=== PATIENT | female | born 1965 | race Hispanic/Latino ===

== ENCOUNTER 2024-05-09 19:32 | Observation (INO) | payer OTHER, MEDICARE ==
[~2024-05-09] VITALS: Ht 160 cm; Wt 129.7 kg
[~2024-05-09 19:32] MED LIST: APIX5TAB PO; ARIP15TA66 PO; ASPI-1026 PO; ATOR40TA71 PO; DOCU100C33 PO; FLUT1BLS PO; FURO40TA5 PO; LEVO25TA54 PO; LOSA25TA41 PO; METO50 PO; MONT-39 PO; POTA-364 PO; TIZA-194 PO
[2024-05-09 20:07] LABS: BASOPHILS # (AUTO) 0.03 K/uL (0.00-0.20); BASOPHILS % (AUTO) 0.4 % (0.0-5.0); EOSINOPHILS # (AUTO) 0.54 K/uL (0.00-0.70); EOSINOPHILS % (AUTO) 7.7 % (0.0-8.0); HEMATOCRIT 41.4 % (36-48); IMMATURE GRANULOCYTE ABSOLUTE 0.02 K/uL (0-1); LYMPHOCYTES # (AUTO) 2.5 K/uL (1.0-4.8); LYMPHOCYTES % (AUTO) 36.3 % (21.0-51.0); MEAN CORPUSCULAR HEMOGLOBIN 29.8 pg (27.0-33.0); MEAN CORPUSCULAR HGB CONC 33.1 g/dL (32.0-36.0); MONOCYTES # (AUTO) 0.6 K/uL (0.1-1.0); NEUTROPHILS # (AUTO) 3.2 K/uL (1.8-7.7); NEUTROPHILS % (AUTO) 46.3 % (40.0-77.0); PLATELET COUNT (AUTO) 202 K/uL (130-400); RED CELL DISTRIBUTION WIDTH 13.2 % (11.0-15.5)
[2024-05-09 20:18] LABS: CREATININE 1.6 mg/dL (0.5-1.0); POTASSIUM 3.8 mmol/L (3.5-5.1)
[2024-05-09 20:21] LABS: INR 1.04 (0.85-1.15); PROTHROMBIN TIME 11.2 SEC (9.6-11.6)
[2024-05-09 20:22] LABS: PARTIAL THROMBOPLASTIN TIME 30.2 SEC (26.3-35.5)
[2024-05-09 20:23] LABS: MAGNESIUM 1.9 mg/dL (1.80-2.40)
[2024-05-09 20:42] LABS: B-TYPE NATRIURETIC PEPTIDE 65 pg/mL (0-100)
[2024-05-09] MEDS ORDERED: hydroMORPHone 0.5 MG SYG (0.5MG/0.5ML) IM ONE (21:00)
[2024-05-09] MEDS ORDERED: acetaMINOPHEN 325 MG TAB PO PRN ×2 (22:00)
[2024-05-10 00:21] VITALS: O2SAT 93
[2024-05-10 01:20] VITALS: BP 113/48; PULSE 64; RESP 20; TEMP 97.8
[2024-05-10 04:00] VITALS: BP 120/71; PULSE 69; RESP 20; TEMP 97.9
[2024-05-10 04:48] LABS: BASOPHILS # (AUTO) 0.05 K/uL (0.00-0.20); BASOPHILS % (AUTO) 0.7 % (0.0-5.0); EOSINOPHILS # (AUTO) 0.48 K/uL (0.00-0.70); EOSINOPHILS % (AUTO) 6.4 % (0.0-8.0); HEMATOCRIT 42.1 % (36-48); IMMATURE GRANULOCYTE ABSOLUTE 0.03 K/uL (0-1); LYMPHOCYTES # (AUTO) 1.8 K/uL (1.0-4.8); LYMPHOCYTES % (AUTO) 24.5 % (21.0-51.0); MEAN CORPUSCULAR HEMOGLOBIN 29.6 pg (27.0-33.0); MEAN CORPUSCULAR VOLUME 89.6 fL (79-99); MONOCYTES # (AUTO) 0.6 K/uL (0.1-1.0); MONOCYTES % (AUTO) 8.1 % (3.0-13.0); NEUTROPHILS # (AUTO) 4.5 K/uL (1.8-7.7); NEUTROPHILS % (AUTO) 59.9 % (40.0-77.0); PLATELET COUNT (AUTO) 187 K/uL (130-400); RED CELL DISTRIBUTION WIDTH 12.8 % (11.0-15.5); WHITE BLOOD COUNT (AUTO) 7.5 K/uL (4.8-10.8)
[2024-05-10 05:11] LABS: ALBUMIN 3.1 g/dL (3.5-5.0); BILIRUBIN,TOTAL 0.6 mg/dL (0.2-1.0); CREATININE 1.6 mg/dL (0.5-1.0); MAGNESIUM 1.9 mg/dL (1.80-2.40); THYROID STIMULATING HORMONE 0.54 uIU/mL (0.36-3.74)
[2024-05-10] MEDS: levoTHYROxine 25 MCG TABLET PO SCH (06:00)
[2024-05-10 08:00] VITALS: BP 118/69; PULSE 77; RESP 20; TEMP 97.8
[2024-05-10] MEDS: metOPROLol sucCINATE 25 MG TAB.SR.24H PO SCH (10:04)
[2024-05-10] MEDS: LoSARTan 25 MG TABLET PO SCH (10:05)
[2024-05-10] MEDS: furoSEMIDE 40 MG TABLET PO SCH (10:05)
[2024-05-10] MEDS: APIXaban 5 MG TABLET PO SCH (10:05)
[2024-05-10 12:00] VITALS: BP 131/61; PULSE 72; RESP 20; TEMP 98.2
[2024-05-10] MEDS ORDERED: METO25TA3 PO (12:59)
[2024-05-10] MEDS ORDERED: ARIPIPrazole 5 MG TABLET PO SCH (21:00)
[2024-05-10] MEDS ORDERED: ARIPIPRAZOLE PO SCH (21:00)
[2024-05-10] MEDS ORDERED: atorVAStatin 40 MG TABLET PO SCH (21:00)
[2024-05-10] MEDS ORDERED: monteLUKAST sodIUM 10 MG TAB PO SCH (21:00)
[2024-05-11] MEDS ORDERED: levoTHYROxine 25 MCG TABLET PO SCH (06:30)
== END 2024-05-10 15:10 | disposition home or self-care (01) ==
LOC: EDH 19:32 → INTOOBSV 21:54 → EDHIP 21:54 → 4CH 05-10 01:20
PROVIDERS: ADMIT Internal Medicine; ATTEND Internal Medicine
DX: I11.0 Hypertensive heart disease with heart failure (principal); I50.22 Chronic systolic (congestive) heart failure; J44.9 Chronic obstructive pulmonary disease, unspecified; E78.5 Hyperlipidemia, unspecified; E03.9 Hypothyroidism, unspecified; F12.90 Cannabis use, unspecified, uncomplicated; E66.01 Morbid (severe) obesity due to excess calories; G47.33 Obstructive sleep apnea (adult) (pediatric); I48.0 Paroxysmal atrial fibrillation; F17.210 Nicotine dependence, cigarettes, uncomplicated; Z86.73 Personal history of transient ischemic attack (TIA), and cerebral infarction without residual deficits; Z79.899 Other long term (current) drug therapy; Z68.43 Body mass index [BMI] 50.0-59.9, adult
CPT/HCPCS: 99285; 82550; 83735 ×2; 84484; 80048; 83880; 85025 ×2; 85610; 85730; 36415 ×2; 71045; 93005 ×2; 83036; 84443; 80061; 80053; G0378 ×3; A4600